=== PATIENT | male | born 1990 | race Caucasian/White ===

== ENCOUNTER 2023-09-28 22:02 | Observation (INO) | payer MEDICARE, MEDICAID, SELFPAY ==
[2023-09-28 17:58] VITALS: BMI 38.8
[2023-09-28 18:02] VITALS: BP 138/87
[2023-09-28 18:19] LABS: % Basophils 0.4 % (0-2); % Eosinophils 0.4 % (0-6); % Immature Granulocytes 0.7 % (0-0.5); % Lymphocytes 5.3 % (20.5-51.1); % Monocytes 2.7 % (1.7-9.3); % Neutrophils 90.5 % (42.2-75.2); Absolute Basophils 0.1 10^3/uL (0-0.2); Absolute Eosinophils 0.1 10^3/uL (0-0.7); Absolute Immature Granulocytes 0.2 10^3/uL (0-0.05); Absolute Lymphocytes 1.2 10^3/uL (1.2-3.4); Absolute Monocytes 0.6 10^3/uL (0.1-0.6); Absolute Neutrophils 19.8 10^3/uL (1.4-6.5); Hematocrit 47.6 % (39.0-52.0); Hemoglobin 16.5 g/dL (13.0-18.0); Mean Corp Hgb Conc. 34.7 g/dL (33.0-37.0); Mean Corpuscular Hgb 31.4 pg (27.0-31.0); Mean Corpuscular Volume 90.5 fL (80.0-94.0); Mean Platelet Volume 8.9 fL (7.4-10.4); Nucleated Red Blood Cells % 0 % (-); Platelet Count 345 10^3/uL (130-400); Red Blood Cell Count 5.26 10^6/uL (4.70-6.10); White Blood Cell Count 21.9 10^3/uL (4.8-10.8)
[2023-09-28] MEDS: DILAUDID 0.5 MG IV ×2 (18:25→22:14)
[2023-09-28] MEDS: NSS 1000 IV ×2 (18:27→23:10)
[2023-09-28 18:36] LABS: ALT (SGPT) 37 U/L (0-50); AST (SGOT) 35 U/L (17-59); Albumin 4.4 g/dl (3.5-5.0); Alkaline Phosphatase 95 U/L (38-126); Blood Urea Nitrogen 22 mg/dl (9-20); Calcium 9.5 mg/dl (8.4-10.2); Carbon Dioxide 24 mmol/L (22-30); Chloride 104 mmol/L (98-107); Glucose 120 mg/dl (70-99); Lipase 597 U/L (23-300); Potassium 4.3 mmol/L (3.5-5.1); Sodium 137 mmol/L (135-145); Total Bilirubin 0.7 mg/dl (0.2-1.3); Total Protein 8.1 g/dl (6.3-8.2); eGFR > 60.00
--- NOTE | 2023-09-28 19:32 | ED.GENMED ---
History of Present Illness
<Cassidy Pascal NP - Last Filed: 09/28/23 23:44>
General
Chief Complaint: Abdominal Pain
Source: patient and family (Mother)
Exam Limitations: none
Time Seen by Provider: 09/28/23 18:09
Nursing documentation reviewed up to this point in time: agreed with
Travel History
Have you had any contact with someone who has COVID-19?: No
Do you have any symptoms of coronavirus? Fever > 100 degrees, chills, cough, shortness of breath, sore throat, loss of taste or smell, muscle aches, or headache?: No
History of Present Illness
History of Present Illness:
Patient to ED with complaint of abdominal pain,vomiting. Mother states he came home from work and symptoms started. Patient crying on arrival. NO fever/chills, recent illness. No diarrhea
Past History
<Cassidy Pascal NP - Last Filed: 09/28/23 23:44>
Past History
ED Past Medical History: Hypothyroidism and Other (Downs)
ED Past Surgical History: None
Social History
Tobacco: Non-smoker
Alcohol: None
Drug: None
Personal: Single
Living: with family
Review of Systems
<Cassidy Pascal NP - Last Filed: 09/28/23 23:44>
Review of Systems
Allergies reviewed?: Yes
All Other Systems: ROS reviewed and negative except as documented in HPI and ROS
Constitutional: Reports no symptoms
EENT: Reports no symptoms
Respiratory: Reports no symptoms
Cardiac: Reports no symptoms
ABD/GI: Reports abdominal pain (RLQ) and vomiting
: Reports no symptoms
Musculoskeletal: Reports no symptoms
Skin: Reports no symptoms
Neurological: Reports no symptoms
Psychiatric: Reports no symptoms
Phy Exam
<Cassidy Pascal NP - Last Filed: 09/28/23 23:44>
General Physical Exam
General Presentation: moderate distress
General age: appears stated age
General Skin: warm and dry
General Habitus: normal
Cardiovascular Exam
Cardiovascular Exam: regular rate/rhythm and no edema
Pulmonary Exam
Pulmonary Exam: lungs clear and no respiratory distress
Gastrointestinal Exam
Gastrointestinal Exam: soft, no organomegaly, no pulsatile mass, non distended and no cva tenderness
Palpation: right upper quadrant: Moderate tenderness and right lower quadrant: Severe tenderness
Musculoskeletal Exam
Musculoskeletal Exam: full ROM and neuro vasc intact
Skin Exam
Skin Exam: normal color, warm/dry and no rash
Psychiatric Exam
Psychiatric Exam: normal mood/affect
Course
<Cassidy Pascal PROGRAM DIRECTOR/TRAFFIC DIRECTOR - Last Filed: 09/28/23 23:44>
Orders/Labs/Results
Orders:
Orders
09/28/23 18:06
Ondansetron Injectable [Zofran] 4 mg .ROUTE .STK-MED ONE
09/28/23 18:14
Complete Blood Count/With Diff Urgent
Comprehensive Metabolic Panel Urgent
Lipase Urgent
09/28/23 18:16
HYDROmorphone [Dilaudid] 0.5 mg IV NOW STA
09/28/23 18:17
CT Abd/pelvis W Iv Cont Urgent
Comment:
Reason For Exam: RLQ abdominal pain, vomiting
09/28/23 18:24
0.9% Sodium Chloride 1000 ml [Nss] 1,000 ml IV BOLUS
09/28/23 19:32
Ondansetron Injectable [Zofran] 4 mg .ROUTE .STK-MED ONE
09/28/23 19:34
Ondansetron Injectable [Zofran] 4 mg IV NOW STA
09/28/23 20:51
Prochlorperazine [Compazine] 10 mg .ROUTE .STK-MED ONE
09/28/23 20:52
Prochlorperazine [Compazine] 10 mg IV NOW STA
09/28/23 20:55
CXR2 [CR Chest - 2 Views ] Urgent
Comment:
Reason For Exam: Cough
09/28/23 21:21
Lactic Acid Urgent
09/28/23 21:33
Admit/Transfer Patient As Directed
Co-Sign Provider:
Level of Care: Observation services
Assign to:: Medical/Surgical
Physician / Group: Raghu
Diagnosis: Enteritis
09/28/23 21:34
Code Status As Directed
Resuscitation Status: Full Code
09/28/23 22:09
HYDROmorphone [Dilaudid] 0.5 mg IV Q4HPRN PRN
09/28/23 23:30
Urinalysis Reflex To Culture Urgent
Date Specimen was Collected: 09/28/23
Time Specimen was Collected: 18:23
Abnormal Lab Results
09/28/23 09/28/23
18:14 21:21
WBC 21.9 H 10^3/uL
(4.8-10.8)
MCH 31.4 H pg
(27.0-31.0)
RDW 15.0 H %
(11.5-14.5)
Abs Immat Gran (auto) 0.2 H 10^3/uL
(0-0.05)
Absolute Neuts (auto) 19.8 H 10^3/uL
(1.4-6.5)
Immature Gran % 0.7 H %
(0-0.5)
Neutrophils % 90.5 H %
(42.2-75.2)
Lymphocytes % 5.3 L %
(20.5-51.1)
BUN 22 H mg/dl
(9-20)
Creatinine 1.4 H mg/dL
(0.7-1.3)
Glucose 120 H mg/dl
(70-99)
Lactic Acid 2.1 H mmol/L
(0.7-2.0)
Lipase 597 H U/L
(23-300)
09/28/23 18:14
09/28/23 18:14
Vital Signs
Initial and Last Documented VS:
Initial Vital Signs
Temp Pulse Resp BP Pulse Ox
98.0 F 119 26 138/87 98
09/28/23 18:02 09/28/23 18:02 09/28/23 18:02 09/28/23 18:02 09/28/23 18:02
Last Documented Vital Signs
Temp Pulse Resp BP Pulse Ox
100.3 F 115 29 128/63 92
09/28/23 23:26 09/28/23 23:21 09/28/23 23:21 09/28/23 23:21 09/28/23 23:21
<Radha Goodson MD - Last Filed: 09/28/23 19:58>
Orders/Labs/Results
Orders:
Orders
09/28/23 18:06
Ondansetron Injectable [Zofran] 4 mg .ROUTE .STK-MED ONE
09/28/23 18:14
Complete Blood Count/With Diff Urgent
Comprehensive Metabolic Panel Urgent
Lipase Urgent
09/28/23 18:16
HYDROmorphone [Dilaudid] 0.5 mg IV NOW STA
09/28/23 18:17
CT Abd/pelvis W Iv Cont Urgent
Comment:
Reason For Exam: RLQ abdominal pain, vomiting
09/28/23 18:24
0.9% Sodium Chloride 1000 ml [Nss] 1,000 ml IV BOLUS
09/28/23 19:32
Ondansetron Injectable [Zofran] 4 mg .ROUTE .STK-MED ONE
09/28/23 19:34
Ondansetron Injectable [Zofran] 4 mg IV NOW STA
09/28/23 20:51
Prochlorperazine [Compazine] 10 mg .ROUTE .STK-MED ONE
09/28/23 20:52
Prochlorperazine [Compazine] 10 mg IV NOW STA
09/28/23 20:55
CXR2 [CR Chest - 2 Views ] Urgent
Comment:
Reason For Exam: Cough
09/28/23 21:21
Lactic Acid Urgent
09/28/23 21:33
Admit/Transfer Patient As Directed
Co-Sign Provider:
Level of Care: Observation services
Assign to:: Medical/Surgical
Physician / Group: Raghu
Diagnosis: Enteritis
09/28/23 21:34
Code Status As Directed
Resuscitation Status: Full Code
09/28/23 22:09
HYDROmorphone [Dilaudid] 0.5 mg IV Q4HPRN PRN
09/28/23 23:30
Urinalysis Reflex To Culture Urgent
Date Specimen was Collected: 09/28/23
Time Specimen was Collected: 18:23
Abnormal Lab Results
09/28/23 09/28/23
18:14 21:21
WBC 21.9 H 10^3/uL
(4.8-10.8)
MCH 31.4 H pg
(27.0-31.0)
RDW 15.0 H %
(11.5-14.5)
Abs Immat Gran (auto) 0.2 H 10^3/uL
(0-0.05)
Absolute Neuts (auto) 19.8 H 10^3/uL
(1.4-6.5)
Immature Gran % 0.7 H %
(0-0.5)
Neutrophils % 90.5 H %
(42.2-75.2)
Lymphocytes % 5.3 L %
(20.5-51.1)
BUN 22 H mg/dl
(9-20)
Creatinine 1.4 H mg/dL
(0.7-1.3)
Glucose 120 H mg/dl
(70-99)
Lactic Acid 2.1 H mmol/L
(0.7-2.0)
Lipase 597 H U/L
(23-300)
09/28/23 18:14
09/28/23 18:14
Vital Signs
Initial and Last Documented VS:
Initial Vital Signs
Temp Pulse Resp BP Pulse Ox
98.0 F 119 26 138/87 98
09/28/23 18:02 09/28/23 18:02 09/28/23 18:02 09/28/23 18:02 09/28/23 18:02
Last Documented Vital Signs
Temp Pulse Resp BP Pulse Ox
100.3 F 115 29 128/63 92
09/28/23 23:26 09/28/23 23:21 09/28/23 23:21 09/28/23 23:21 09/28/23 23:21
<Cassidy Pascal NP - Last Filed: 09/28/23 23:44>
*Critical Care Note
Total Time (30-74mins, 75-104mins- exclusive of procedures): Not Applicable
<Cassidy Pascal NP - Last Filed: 09/28/23 23:44>
Update Note
Update Note:
Patient to ED with abdominal pain and vomiting. Symptoms started this afternoon. CT result: enteritis inflammatory vs infectious. WBC elevated at 21. Afebrile in dept. He is unable to tolerate po fluids dispite pain meds and antiemetics. Still
no diarrhea. Will continue IV hydration, admit to hospitalist. Will hold off on antibiotics at this time. Case discussed with Dr.. Goodson who also evaluated this patient Agrees with findings and plan.
ED Attending Note
<Cassidy Pascal NP - Last Filed: 09/28/23 23:44>
-
Portions of this chart may have been created with voice recognition software.� Occasional wrong word or��sound alike� substitutions may have occurred due to the inherent limitations of voice recognition software.
<Radha Goodson MD - Last Filed: 09/28/23 19:58>
ED Attending Note
Patient seen and examined by attending physician: Yes
I performed the substantive portion of visit, reviewed & personally made and approve the management plan that is documented in note by myself or BOO.: Yes
ED Attending Note:
33-year-old male who presents to the ER with complaints of abdominal discomfort, nausea, repeated nonbloody vomiting. No fever or diarrhea noted. Pain is somewhat diffuse. On exam, abdomen soft, diffusely tender, no rebound or guarding. Patient
began actively vomiting, nonbloody. Labs CT noted, significant leukocytosis, no acute surgical findings on CT, appendix noted to be normal. Leukocytosis may be consistent with patient's pain, and known enteritis however given continued pain,
continued vomiting, etc. will bring into the hospital for hydration, antiemetics, pain control, continued exams and observation. Family updated.
Discharge Plan
Departure
Patient Disposition: Admit
Date of Disposition: 09/28/23
Time of Disposition: 19:34
Presentation/result/management discussed w/ accepting MD/DO: Hospitalist
Condition: Fair
Covid-19: Not Applicable
Discharge Problem:
Enteritis
Interventions
Interventions:
*Risk Screen - Suicide Last Done: 09/28/23 18:00
*General Assessment Last Done: 09/28/23 18:00
*Neglect/Abuse Screening Last Done: 09/28/23 18:00
ED- Fall Risk Assessment Last Done: 09/28/23 18:43
OT-Byjinj-Xlufjqcxbr Assessment Last Done: 09/28/23 23:27
[2023-09-28] MEDS: ZOFRAN 4 MG IV (19:36)
--- NOTE | 2023-09-28 20:52 | HPS.HSE ---
Family Physician
-
Family Physician: Micaela Robb
Chief Complaint
-
Abd Pain, N/V
History of Present Illness
Patient is a 33y M with PMH significant for Down's syndrome, gout and hypothyroidism who presents to ED complaining of abdominal pain and N/V. Patient states that he was feeling well until about 4 PM today when he developed sudden onset of
sharp, stabbing mid-abdominal pain. He has since had multiple episodes of non-bloody, bilious emesis - including ongoing emesis here in the ED.
Patient denies any recent illness including diarrhea, etc. No known sick contacts.
No fevers / chills. No chest pain.
Patient does complain of cough - which brother states is a chronic issue.
Medical History
Past Medical History
Past Medical History: Reports Other
Additional Past Medical History:
Down's Syndrome
Hypothyroidism
Gout
History of Severe Pneumonia / Empyema (x 2)
Obesity
Past Surgical History: Reports Other
Additional Past Surgical History:
Chest Tube
Social History
Tobacco: Non-smoker
Alcohol: Occasional
Drug: None
Family History
Family History: Not pertinent
Allergies / Home Medications
Allergies reflects when Allergies were last updated in [facility].
Home Medications with original date entered in [facility]
Allergy/Medication List:
Allergies
Allergy/AdvReac Type Severity Reaction Status Date / Time
NKA - No Known Allergies Allergy Unknown Uncoded 02/22/21 16:11
Home Medications
allopurinol 300 mg tablet 300 mg PO DAILY 09/28/23
levothyroxine 125 mcg tablet 125 mcg PO DAILY 09/28/23
Review of Systems
-
History Source: Patient and Family
A 12 point ROS was completed and negative except as noted: Yes
Constitutional: Reports Fatigue; Denies Fever or Chills
EENT: Denies Sore Throat
Respiratory: Reports Cough; Denies Hemoptysis or Trouble Breathing
Cardiac: Denies Chest Pain, Diaphoresis or Palpitations
Abdomen/GI: Reports Abdominal Pain, Nausea and Vomiting; Denies Diarrhea, Constipated, Bloody Stools or Black Stools
: Denies Dysuria, Frequency or Flank Pain
Neurological: Denies Dizzy or Headache
Psych: Denies Depression or Anxiety
Physical Exam
Vital Signs
Vital Signs
Temp Pulse Resp BP Pulse Ox
98.0 F 119 26 138/87 98
09/28/23 18:02 09/28/23 18:02 09/28/23 18:02 09/28/23 18:02 09/28/23 18:02
Physical Exam
General: Other (33y M in moderare distress due to abdominal pain and nausea.)
HEENT: Other (Thick neck, Down's facies)
Respiratory: Clear; No Wheezes, Rales or Rhonchi
Cardiac: S1/S2 and Regular Rhythm; No Murmur
GI: Other (Obese, diffusely tender - mostly in mid abdomen. Voluntary guarding. Decreased bowel sounds.)
Musculoskeletal: No Clubbing, No Cyanosis and No Edema
Neuro: AO x 3
Laboratory Results
-
09/28/23 18:14
09/28/23 18:14
Laboratory Results
Total Bilirubin 0.7 mg/dl (0.2-1.3) 09/28/23 18:14
AST 35 U/L (17-59) 09/28/23 18:14
ALT 37 U/L (0-50) 09/28/23 18:14
Alkaline Phosphatase 95 U/L (38-126) 09/28/23 18:14
Lipase 597 U/L (23-300) H 09/28/23 18:14
Impression/Plan
-
A/P: Patient is a 33y M with PMH significant for history of severe pneumonia, hypothyroidism and Down's syndrome who presents to ED complaining of abdominal pain with N/V.
Acute Enteritis
- Observe overnight for further evaluation and treatment.
- CT scan in the ED shows mild enteritis but no other acute findings.
- NPO for now.
- IVF support, pain control, antiemetics, etc.
- Follow for clinical improvement.
- Observe off of abx for now - follow fever curve, etc.
- Check lactate level.
Leukocytosis
- WBC = 20 with L shift. Also with significant increase in Hgb from prior baseline.
- Likely due to acute inflammation + volume depletion.
- IVF support as noted above.
- Follow for any fever, new symptoms, etc.
- Follow for improvement in cell counts.
Hypothyroidism
- Stable. Continue T4 supplementation.
History of Gout
- Stable. No current joint swelling / symptoms.
- Continue allopurinol.
- IVF support as noted above to avoid / improve hypovolemia.
DVT Prophylaxis: SCDs
Code Status: Full
[2023-09-28] MEDS: COMPAZINE 10 MG IV (20:53)
[2023-09-28 21:38] LABS: Lactic Acid 2.1 mmol/L (0.7-2.0)
[2023-09-28 22:46] VITALS: BMI 38.8
[2023-09-28 23:21] VITALS: BP 128/63
[2023-09-29] VITALS (18 sets, daily range): BP systolic 100–139; BP diastolic 45–96; BMI 37.4
[2023-09-29] MEDS: NSS 1000 IV ×2 (01:30→06:58)
[2023-09-29] MEDS: DILAUDID 0.5 MG IV ×2 (02:06→06:55)
[2023-09-29 06:20] LABS: Hematocrit 41.7 % (39.0-52.0); Hemoglobin 14.1 g/dL (13.0-18.0); Mean Corp Hgb Conc. 33.8 g/dL (33.0-37.0); Mean Corpuscular Hgb 31.5 pg (27.0-31.0); Mean Corpuscular Volume 93.1 fL (80.0-94.0); Mean Platelet Volume 9.3 fL (7.4-10.4); Platelet Count 285 10^3/uL (130-400); Red Blood Cell Count 4.48 10^6/uL (4.70-6.10); Red Cell Dist. Width 15.2 % (11.5-14.5); White Blood Cell Count 19.1 10^3/uL (4.8-10.8)
[2023-09-29 06:49] LABS: Blood Urea Nitrogen 23 mg/dl (9-20); Carbon Dioxide 23 mmol/L (22-30); Chloride 106 mmol/L (98-107); Estimated Creatinine Clearance 79 ml/min; Glucose 106 mg/dl (70-99); Magnesium 1.7 mg/dl (1.6-2.3); Phosphorus 5.5 mg/dl (2.5-4.5); Potassium 4.8 mmol/L (3.5-5.1); Sodium 138 mmol/L (135-145); eGFR > 60.00
[2023-09-29] MEDS: SYNTHROID 125 MCG PO (07:59)
[2023-09-29] MEDS: PROTONIX IV 40 MG IV (09:33)
[2023-09-29] MEDS: ZYLOPRIM 300 MG PO (09:33)
[2023-09-29] MEDS: NSS (PRESERVATIVE FREE) 10 ML IV (09:33)
[2023-09-29 09:51] LABS: Urine Albumin Negative (Neg - Trace); Urine Bilirubin Negative (Negative); Urine Character Clear (Clear); Urine Color Yellow; Urine Glucose Negative (Negative); Urine Ketone Negative (Negative); Urine Leukocyte Negative (Negative); Urine Nitrite Negative (Negative); Urine Occult Blood Negative (Negative); Urine Urobilinogen Negative (Neg - 1+)
[2023-09-29 10:58] LABS: Lactic Acid 0.9 mmol/L (0.7-2.0)
--- NOTE | 2023-09-29 11:00 | W.PN.HOSP.TC ---
Today's Communication/Plan
-
clears
change IVF to LR
Monitor for diet tolerance
Assessment / Plan
Assessment / Plan
A/P: Patient is a 33y M with PMH significant for history of severe pneumonia, hypothyroidism and Down's syndrome who presents to ED complaining of abdominal pain with N/V.
Sepsis likely 2/2 enteritis (likely viral) -poa
- CT scan in the ED shows mild enteritis but no other acute findings.
- clears and ADAT.
- IVF support, pain control, antiemetics, etc.
- Follow for clinical improvement.
- Observe off of abx for now - follow fever curve, etc.
- If with diarrhea then check stool studies.
Leukocytosis
- Likely due to acute inflammation + volume depletion.
- IVF support as noted above.
- Follow for any fever, new symptoms, etc.
- Follow for improvement in cell counts.
Lactic acidosis
-resolved with IVF.
Hypothyroidism
- Stable. Continue T4 supplementation.
History of Gout
- Stable. No current joint swelling / symptoms.
- Continue allopurinol.
- IVF support as noted above to avoid / improve hypovolemia.
CKD unknown stage
-trend cr
Acute hypoxic resp insufficiency
-IS ordered
-nasal congestion
-likely atelectasis
DVT Prophylaxis: SCDs
Code Status: Full
d/w with mother at bedside in details.
Anticipated Discharge: > 48 hours
Subjective/Interval History
-
Date of Service: September 29, 2023
History obtained from mom at bedside and intermittently pt answering question as pt with down syndrome
improvement in abd pain.
no nausea or vomiting
no diarrhea
denies chest pain or sob
thirsty and wants to drink
Objective Data
-
Labs:
Laboratory Results
09/29/23
05:14
WBC 19.1 H
Hgb 14.1
Hct 41.7
Plt Count 285
Sodium 138
Potassium 4.8
Chloride 106
Carbon Dioxide 23
BUN 23 H
Creatinine 1.4 H
Glucose 106 H
Calcium 8.0 L D
Vital Signs:
Vital Signs
Temp Pulse Resp BP Pulse Ox
100.3 F 89 14 100/54 94
09/28/23 23:26 09/29/23 10:30 09/29/23 10:30 09/29/23 10:00 09/29/23 10:30
I&O
09/28/23 09/29/23 09/30/23
06:59 06:59 06:59
Intake Total 1800 / 1800
Balance 1800 / 1800
Physical Exam
-
General: Well Developed and No Apparent Distress
HEENT: Normocephalic, Atraumatic and Moist Mucous Membranes
Respiratory: Clear to Auscultation
Cardiac: Regular Rhythm and S1/S2; Negative Murmur, Rub or Gallop
GI: Soft, Nondistended, Normal Bowel Sounds, Tender and Other (no guarding or rigidity ); Negative Organomegaly
Rectal: Deferred by Provider
Musculoskeletal: No Clubbing, No Cyanosis and No Edema
Skin: Negative Rash
Neuro: Awake and Nonfocal/Grossly Intact
Psych: Calm
Data Reviewed
-
Total Time Spent with Patient (in minutes): 56
--- NOTE | 2023-09-29 11:08 | CON.GS ---
Addendum entered and electronically signed by Víctor Calabrese MD 09/29/23 14:29:
Patient seen and examined.
Patient is a 33 yo M with a PMH of gout, hypothyroidism, and Down syndrome who presents with 24 hours of nausea, vomiting, abdominal pain. Mother is present for encounter. Patient and mother states that he was doing well prior to acute onset of
symptoms yesterday. He reports having wings which did not taste right on Thursday. He then had leftovers of the swings within hours of the onset of his symptoms. Severe profuse nausea and vomiting. No hematemesis. No bloody bowel movements. No
fevers prior to presentation. He has some abdominal discomfort in his mid abdomen. Augustine states that his symptoms have mildly improved.
Gen: NAD
Abd: soft, tender in mid epigastrium, ND, non-peritoneal (no rebound or guarding)
Labs and imaging reviewed.
Patient is a 33 yo M p/w infectious enteritis
No clinical or radiographic concern for bowel ischemia. Exam without peritonitis. CT scan imaging without significant bowel wall thickening, pneumatosis, or free air. WBC and elevated lactate are likely related to dehydration. Degree of
dehydration notable for elevated Hb and SADAF. No plans or indication for surgical intervention at this time. Okay for clears for comfort. Trend labs and continue IV fluid resuscitation. All questions answered.
-- No plans for surgery at this time
-- OK for clears
-- IVF
-- Trend labs
-- Zosyn for translocation
-- Stool studies
Original Note:
Consultation
-
Date/Time Consultation Requested: 09/29/2023
Date/Time Consultation Performed: 09/29/2023
Performing Provider: Dr. Víctor Calabrese
Medical History
-
Chief Complaint: Abdominal pain, nausea, vomiting
History of Present Illness:
33 yo, male with past medical history significant for hypothyroidism, gout, Down's presented with nausea/vomiting and abdominal pain since 1 day. Patient states that abdominal pain is acute in onset, diffuse, intermittent, nonradiating, associated
with multiple episodes of nonbloody vomiting. No history of fevers, chills, diarrhea. Patient attributes the current symptoms to the food he ate outside during [employer] game.
Past Medical History
Past Medical History: Hypothyroidism and Other ( Down' s syndrome, gout)
Past Surgical History: None
Social History
Tobacco: Non-Smoker
Alcohol: None
Drug: None
Personal: Single
Employment: Employed
Allergies / Home Medications
Allergy/AdvReac Type Severity Reaction Status Date / Time
No Known Allergies Allergy Unverified 09/28/23 22:11
�Medication �Instructions �Recorded �Confirmed �Type
allopurinol 300 mg tablet 300 mg PO DAILY 09/28/23 09/28/23 History
levothyroxine 125 mcg tablet 125 mcg PO DAILY 09/28/23 09/28/23 History
Review of Systems
-
All other systems: Negative unless noted (As per HPI)
A 10 point review of systems was completed, and was negative except as per HPI.
Physical Exam
Vital Signs
Temp Pulse Resp BP Pulse Ox
100.3 F 89 14 100/54 94
09/28/23 23:26 09/29/23 10:30 09/29/23 10:30 09/29/23 10:00 09/29/23 10:30
09/28/23 09/29/23 09/30/23
06:59 06:59 06:59
Actual Weight 99.3 kg
Body Mass Index (BMI) 38.8
Lab Results
09/29/23 05:14
09/29/23 05:14
WBC 19.1 10^3/uL (4.8-10.8) H 09/29/23 05:14
Hgb 14.1 g/dL (13.0-18.0) 09/29/23 05:14
Hct 41.7 % (39.0-52.0) 09/29/23 05:14
Plt Count 285 10^3/uL (130-400) 09/29/23 05:14
Abs Immat Gran (auto) 0.2 10^3/uL (0-0.05) H 09/28/23 18:14
Neutrophils % 90.5 % (42.2-75.2) H 09/28/23 18:14
Physical Exam
General: Well Developed and Well Nourished
HEENT: Normocephalic, Anicteric and Other (webbed neck)
Respiratory: Clear
Cardiac: S1/S2 and Regular Rhythm
GI: Soft, Normal Bowel Sounds and Tender (Diffusely, no guarding/rigidity)
Musculoskeletal: No Edema
Skin: Warm and Dry
Neuro: Awake and Alert
Data Reviewed
-
CT Scan: Image Personally Visualized and interpreted
Assessment / Plan
-
33 yo, male with PMH of hypothyroidism, gout, Down syndrome noted with abdominal pain, nausea and vomiting.
# Acute gastroenteritis
-Infectious vs inflammatory vs ischemic etiology
-Likely infectious
CT abdomen�09/28/2023� Mild wall thickening of multiple proximal loops of jejunal small bowel in the central abdomen most suspicious for a mild enteritis.
� NPO
- IV fluids
-Pain control
� Antiemetics
- Start Zosyn
� Leukocytosis trending down, WBC at 19.1 today
�Monitor fever curve, WBC count
-Follow for clinical improvement
DVT prophylaxis: SCDs
[2023-09-29] MEDS: TYLENOL 650 MG PO ×2 (11:27→17:55)
[2023-09-29] MEDS: LR 1000 IV (12:42)
[2023-09-29] MEDS: UNASYN IV ×2 (16:10→21:42)
[2023-09-29] MEDS: LOVENOX 40 MG SC (18:05)
--- NOTE | 2023-09-29 18:19 | PTCARENOTE ---
Pt. admitted from ED. IVF running. Mom at bedside staying with patient. Patient and mom oriented to unit. Pt. ordered clear liquid diet tray for dinner. VSS.
[2023-09-29] MEDS: PERCOCET 5/325 1 TABLET PO (21:42)
[2023-09-30] MEDS: TYLENOL 650 MG PO ×2 (00:57→06:13)
[2023-09-30] MEDS: LR 1000 IV ×2 (01:03→09:24)
[2023-09-30] MEDS: UNASYN IV ×2 (03:47→09:25)
[2023-09-30] MEDS: SYNTHROID 125 MCG PO (06:09)
[2023-09-30 07:14] LABS: % Basophils 0.8 % (0-2); % Eosinophils 1.9 % (0-6); % Immature Granulocytes 0.4 % (0-0.5); % Lymphocytes 19.8 % (20.5-51.1); % Monocytes 11.9 % (1.7-9.3); % Neutrophils 65.2 % (42.2-75.2); Absolute Eosinophils 0.1 10^3/uL (0-0.7); Absolute Lymphocytes 1.1 10^3/uL (1.2-3.4); Absolute Monocytes 0.6 10^3/uL (0.1-0.6); Absolute Neutrophils 3.5 10^3/uL (1.4-6.5); Hematocrit 42.8 % (39.0-52.0); Mean Corp Hgb Conc. 32.7 g/dL (33.0-37.0); Mean Corpuscular Hgb 31.3 pg (27.0-31.0); Mean Corpuscular Volume 95.7 fL (80.0-94.0); Mean Platelet Volume 9.3 fL (7.4-10.4); Nucleated Red Blood Cells % 0 % (-); Platelet Count 209 10^3/uL (130-400); Red Blood Cell Count 4.47 10^6/uL (4.70-6.10); Red Cell Dist. Width 15.3 % (11.5-14.5); White Blood Cell Count 5.3 10^3/uL (4.8-10.8)
[2023-09-30 07:30] VITALS: BP 114/68
[2023-09-30 07:37] LABS: ALT (SGPT) 27 U/L (0-50); AST (SGOT) 30 U/L (17-59); Albumin 3.1 g/dl (3.5-5.0); Alkaline Phosphatase 61 U/L (38-126); Blood Urea Nitrogen 15 mg/dl (9-20); Calcium 8.4 mg/dl (8.4-10.2); Carbon Dioxide 31 mmol/L (22-30); Chloride 106 mmol/L (98-107); Estimated Creatinine Clearance 94 ml/min; Glucose 91 mg/dl (70-99); Potassium 4.4 mmol/L (3.5-5.1); Sodium 137 mmol/L (135-145); Total Bilirubin 0.6 mg/dl (0.2-1.3); eGFR > 60.00
--- NOTE | 2023-09-30 08:48 | W.PN.GS2 ---
Addendum entered and electronically signed by Terrence Vieira MD 09/30/23 13:53:
Ok for a short course of abx x4days
Original Note:
Today's Communication / Plan
-
Advance diet
Assessment / Plan
-
This is a 33-year-old male with a history of Down syndrome, no prior abdominal surgical history who presents with 24 hours of nausea vomiting and abdominal pain. No sick contacts. CT scan concerning for slightly thickened/enhancing bowel but no
obstructive pattern, pneumatosis, portal venous gas or free air. His leukocytosis, lacticemia and SADAF have all resolved with hydration. Though he is not having diarrhea, I suspect this is gastroenteritis
Can advance to a regular diet as tolerated.
Antibiotics per primary.
Continue to trend labs.
Stool studies as able
General surgery will follow peripherally, please call with any questions or concerns.
Time Spent
Total Time Spent with Patient (in minutes): 15
Subjective Data
-
Date of Service: September 30, 2023
Interval Events:
No acute events overnight. Slept okay. Pain Controlled. Denies Nausea/Vomiting, -bowel function. Tolerating diet.
Objective Data
-
Intake and Output
09/29/23 09/30/23 10/01/23
06:59 06:59 06:59
Intake Total 1800 / 1800 1920 / 1920
Output Total 2500 / 2500
Balance 1800 / 1800 -580 / -580
Intake:
Oral fluids 480 / 480
IV fluids (Total) 1800 / 1800 1200 / 1200
Nss 1,000 ml @ 150 mls/hr IV . 1800 / 1800
Q6H40M MAGDALENO Rx#:[id number]
IV piggybacks 240 / 240
Output:
Urine, Voided 2500 / 2500
Other:
Number of unmeasured voidings 2
Vital Signs
Temp Pulse Resp BP Pulse Ox
97.6 F 68 18 114/68 96
09/30/23 07:30 09/30/23 07:30 09/30/23 07:30 09/30/23 07:30 09/30/23 07:30
Lab Results
09/30/23 06:55
09/30/23 06:55
Calcium 8.4 mg/dl (8.4-10.2) 09/30/23 06:55
Phosphorus 5.5 mg/dl (2.5-4.5) H 09/29/23 05:14
Magnesium 1.7 mg/dl (1.6-2.3) 09/29/23 05:14
Total Bilirubin 0.6 mg/dl (0.2-1.3) 09/30/23 06:55
AST 30 U/L (17-59) 09/30/23 06:55
ALT 27 U/L (0-50) 09/30/23 06:55
Alkaline Phosphatase 61 U/L (38-126) 09/30/23 06:55
Total Protein 6.0 g/dl (6.3-8.2) L D 09/30/23 06:55
Albumin 3.1 g/dl (3.5-5.0) L 09/30/23 06:55
Physical Exam
-
GENERAL/NEURO: Sleepy, somewhat difficult to arouse, no distress
CHEST: Unlabored breathing on 4 L nasal cannula
ABDOMEN: Soft, obese, nontender, nondistended
[2023-09-30] MEDS: ZYLOPRIM 300 MG PO (09:24)
[2023-09-30] MEDS: NSS (PRESERVATIVE FREE) 10 ML IV (09:25)
[2023-09-30] MEDS: PROTONIX IV 40 MG IV (09:25)
--- NOTE | 2023-09-30 11:31 | W.PN.HOSP.TC ---
Today's Communication/Plan
-
Wean o2 as tolerated
monitor for diet tolerance
Assessment / Plan
Assessment / Plan
A/P: Patient is a 33y M with PMH significant for history of severe pneumonia, hypothyroidism and Down's syndrome who presents to ED complaining of abdominal pain with N/V.
Sepsis likely 2/2 enteritis likely viral versus bacterial-POA
- CT scan in the ED shows mild enteritis but no other acute findings.
- Data transfer) monitor tolerance. If tolerating diet DC fluid later today
- IVF support, pain control, antiemetics, etc.
- Follow for clinical improvement.
- Started on antibiotics per surgery. Can complete a short course
- If with diarrhea then check stool studies.
Leukocytosis
- Likely due to acute inflammation + volume depletion.
- IVF support as noted above.
- Follow for any fever, new symptoms, etc.
- Follow for improvement in cell counts.
Lactic acidosis
-resolved with IVF.
Hypothyroidism
- Stable. Continue T4 supplementation.
History of Gout
- Stable. No current joint swelling / symptoms.
- Continue allopurinol.
- IVF support as noted above to avoid / improve hypovolemia.
CKD unknown stage
-trend cr
Acute hypoxic resp insufficiency likely second atelectasis
-IS ordered
-nasal congestion
-Wean oxygen. If no improvement check repeat imaging
DVT Prophylaxis: SCDs
Code Status: Full
d/w with mother at bedside in details on daily basis
Anticipated Discharge: Within 24 hours
Subjective/Interval History
-
Date of Service: September 30, 2023
Remains on oxygen
States improvement in abdominal discomfort from yesterday
No nausea vomiting or diarrhea
Additional history obtained with mother at bedside
Objective Data
-
Labs:
Laboratory Results
09/30/23
06:55
WBC 5.3
Hgb 14.0
Hct 42.8
Plt Count 209 D
Sodium 137
Potassium 4.4
Chloride 106
Carbon Dioxide 31 H
BUN 15
Creatinine 1.2
Glucose 91
Calcium 8.4
Total Bilirubin 0.6
AST 30
ALT 27
Alkaline Phosphatase 61
Vital Signs:
Vital Signs
Temp Pulse Resp BP Pulse Ox
97.6 F 68 18 114/68 97
09/30/23 07:30 09/30/23 07:30 09/30/23 07:30 09/30/23 07:30 09/30/23 11:10
I&O
09/29/23 09/30/23 10/01/23
06:59 06:59 06:59
Intake Total 1800 / 1800 1919 / 1919
Output Total 2500 / 2500
Balance 1800 / 1800 -580 / -580
Physical Exam
-
General: Well Developed and No Apparent Distress
HEENT: Normocephalic, Atraumatic, Moist Mucous Membranes and Oxygen
Respiratory: Decreased Breath Sounds
Cardiac: Regular Rhythm and S1/S2; Negative Murmur, Rub or Gallop
GI: Soft, Nondistended, Normal Bowel Sounds, Tender (Mild improved from yesterday epigastric) and Other (no guarding or rigidity ); Negative Organomegaly
Rectal: Deferred by Provider
Musculoskeletal: No Clubbing, No Cyanosis and No Edema
Skin: Negative Rash
Neuro: Awake and Nonfocal/Grossly Intact
Psych: Calm
Data Reviewed
-
Total Time Spent with Patient (in minutes): 56
--- NOTE | 2023-09-30 11:35 | CM ---
Addendum entered by Francisca Valentin RN 09/30/23 15:48:
Patient is being discharged to home today with no additional needs being identified at this time. The patient's mother will provide transportation.
Original Note:
Reviewed the chart notes and spoke with the patient and his mother at the bedside. The patient is admitted under observational status. The JAMISON letter was provided and explained. The patient's mother had no questions with regards to the letter.
The patient resides with his mother in a two story home with three steps to enter. The patient reports no DME/VN/SNF in the patient in the past. The patient confirmed his pharmacy of choice is the [facility]. CM continues to be
available to patient/family and is monitoring medical plan for needs at discharge.
Plan: Discharge to home when medically stable. No needs anticipated.
[2023-09-30] MEDS: OCEAN, SALINE MIST 2 SPRAYS NASAL (11:49)
[2023-09-30 15:29] VITALS: BP 120/71
--- NOTE | 2023-09-30 15:43 | W.DCSUMMARY ---
Discharge Summary
Discharge Data
Date of Admission: 09/28/23
Date of Discharge: 09/30/23
-
Pending Results: No
Hospital Course
33y M with PMH significant for history of severe pneumonia, hypothyroidism and Down's syndrome who presents to ED complaining of abdominal pain with N/V. CT scan in the ED shows mild enteritis but no other acute findings. Patient with
leukocytosis. General surgery was consulted by ER. Patient initially was kept on IV fluids and n.p.o. Diet was advanced to liquid diet. Patient was able to tolerate liquid diet. Patient was started on IV antibiotics per general surgery
recommendation. Patient without any fevers. Patient WBC down trended. Patient with no other symptomology. Patient tolerated liquid diet and thus was advanced to regular diet. Patient also with atelectasis and required oxygenation. Patient was
able to be weaned off to room air. Patient tolerating regular diet. Patient was discharged with p.o. antibiotics. Of note patient answered few questions however mother at bedside on a daily basis who assisted throughout hospitalization.
Discharge Plan
-
Patient Disposition: Home (Routine Discharge)
Discharge Diagnosis/Procedures: Sepsis likely 2/2 enteritis likely viral versus bacterial
Leukocytosis
Acute hypoxic respiratory insuffiency
Condition: Fair
Diet: Low Residue
Activity: With assistance and As tolerated
Driving Restrictions: Not until seen by your Dr
Referrals:
Micaela Robb, DO [Family Provider] - in less than 1 week
Prescriptions:
New
amoxicillin-pot clavulanate 875-125 mg tablet
1 tab PO Q12H Qty: 8 0RF
Continued
levothyroxine 125 mcg tablet
125 mcg PO DAILY
allopurinol 300 mg tablet
300 mg PO DAILY
Discharge Orders:
Discharge Patient (As Directed); Ordered 09/30/23
Ordered By: Teja La
Discharge Date and Time
Print Language: TOGOLESE
--- NOTE | 2023-09-30 17:05 | PTCARENOTE ---
Patient discharged home. This RN removed patient's IV and reviewed discharge instructions with patient and patient's mother; both verbalized understanding. Patient dressed and belongings gathered with assistance of mother, patient taken down to
mother's car via staff escort and wheelchair.
== END 2023-09-30 17:21 | disposition home or self-care (01) ==
LOC: 2 NORTH 22:02
PROVIDERS: Nurse Practitioner; ADMITTING PHYSICIAN Hospitalist; ATTENDING PHYSICIAN Hospitalist; EMERGENCY PHYSICIAN Emergency Medicine; FAMILY PHYSICIAN Family Medicine; OTHER PHYSICIAN Surgery
DX: A41.9 Sepsis, unspecified organism (principal); R10.9 Unspecified abdominal pain; E03.9 Hypothyroidism, unspecified; Q90.9 Down syndrome, unspecified; R11.2 Nausea with vomiting, unspecified; R05.9 Cough, unspecified; K52.9 Noninfective gastroenteritis and colitis, unspecified; M10.9 Gout, unspecified; E66.9 Obesity, unspecified; K40.90 Unilateral inguinal hernia, without obstruction or gangrene, not specified as recurrent; J98.11 Atelectasis; E87.20 Acidosis, unspecified; R09.02 Hypoxemia; R06.89 Other abnormalities of breathing; R09.81 Nasal congestion; N18.9 Chronic kidney disease, unspecified; Z68.37 Body mass index [BMI] 37.0-37.9, adult; Z79.890 Hormone replacement therapy
CPT/HCPCS: 71046; 74177; 80048; 80053; 81003; 83605; 83690; 83735; 84100; 85025; 85027; 96361; 96374; 96375; 99285; G0378; Q9967

== ENCOUNTER 2024-09-11 16:03 | Emergency (ER) | payer MEDICARE, MEDICAID, SELFPAY ==
[2024-09-11 16:08] VITALS: BP 134/87
[2024-09-11 17:57] VITALS: BP 126/79
--- NOTE | 2024-09-11 19:00 | ED.GENMED ---
History of Present Illness
General
Chief Complaint: Cough
Source: patient and family (Mother)
Exam Limitations: none
Time Seen by Provider: 09/11/24 18:28
History of Present Illness
History of Present Illness:
Patient was in the pool and had an episode of coughing up blood. Fair amount of blood per the mom. Occurred once around 3:30 PM. No further episodes. Did eat spinach earlier and had left this stems on and had somewhat of a foreign body sensation
in his posterior pharynx. No shortness of breath no further episodes no ongoing cough. This happened once. Apparently there was a fair amount of blood in his mouth.
Past History
Past History
ED Past Medical History: Hypothyroidism and Other (Downs)
ED Past Surgical History: None
Social History
Tobacco: Non-smoker
Alcohol: None
Drug: None
Personal: Single
Living: with family
Review of Systems
Review of Systems
All Other Systems: Not applicable
Constitutional: Denies fever
Respiratory: Denies trouble breathing
Cardiac: Denies chest pain or syncope
Phy Exam
Physical Exam
Physical Exam:
GENERAL: Alert and oriented in no apparent distress sequelae of Down syndrome
EYE: Orbits normal.
NECK: Supple. No swelling
ENT: Pharynx without erythema. No active bleeding. No intraoral blood. There is significant irritation to both nasal septum right greater than left but no active bleeding
CARDIAC: Regular rate and rhythm without any obvious murmurs.
LUNGS: Clear breath sounds,normal
ABDOMEN: Soft, without focal tenderness or distention
NEUROLOGICAL: Alert and oriented , grossly non-focal. Sequela of Down syndrome
SKIN: Warm and dry, no rash or lesion, no discoloration, skin intact.
MUSCULOSKELETAL: No edema,no deformity.Good color
PSYCH: Normal and appropriate interaction.
Course
Orders/Labs/Results
Orders:
Orders
09/11/24 16:11
Chest [CR Chest - 2 Views ] Urgent
Comment:
Reason For Exam: cough
Vital Signs
Initial and Last Documented VS:
Initial Vital Signs
Temp Pulse Resp BP Pulse Ox
98.8 F 88 18 134/87 95
09/11/24 16:08 09/11/24 16:08 09/11/24 16:08 09/11/24 16:08 09/11/24 16:08
Last Documented Vital Signs
Temp Pulse Resp BP Pulse Ox
98.8 F 73 16 126/79 98
09/11/24 16:08 09/11/24 17:57 09/11/24 17:57 09/11/24 17:57 09/11/24 17:57
MDM/Problems Addressed
Differential Diagnosis Includes:
Patient's exam is totally benign. He is in no distress. Airway is clear his lungs are clear he has no blood in his nares or oropharynx at this time. With the blood described in his mouth I think this is fairly unlikely to have been true lung
related hemoptysis. I am more suspicious of possibly a nosebleed while he was in the water. Discussed options with mom of further workup including CT angio of the chest which I feel would have a very low yield versus continued observation which I
think is reasonable. Mom is comfortable with outpatient observation. Will return with any issues
*Radiology
Radiology exam reviewed: radiology read reviewed (Negative)
*Pulse Oximetry
Patient hypoxic: no
*Critical Care Note
Total Time (30-74mins, 75-104mins- exclusive of procedures): Not Applicable
ED Attending Note
-
Portions of this chart may have been created with voice recognition software.� Occasional wrong word or��sound alike� substitutions may have occurred due to the inherent limitations of voice recognition software.
Discharge Plan
Departure
Patient Disposition: Home (Routine Discharge)
Date of Disposition: 09/11/24
Time of Disposition: 19:03
Patient with high blood pressure during this ER visit?: Yes
Discharge Problem:
Hemoptysis
Instructions: Coughing up blood, BLOOD PRESSURE
Prescriptions:
No Action
levothyroxine 125 mcg tablet
125 mcg PO DAILY
allopurinol 300 mg tablet
300 mg PO DAILY
amoxicillin-pot clavulanate 875-125 mg tablet
1 tab PO Q12H Qty: 8 0RF
Activity Restrictions/Additional Instructions:
Return with any recurrent episode, shortness of breath, fever cough chest pain or any other concerning symptoms
Follow-up closely with his primary physician
Interventions
Interventions:
*Risk Screen - Suicide Last Done: 09/11/24 16:08
*General Assessment Last Done: 09/11/24 16:08
*Neglect/Abuse Screening Last Done: 09/11/24 16:08
*ED- Fall Risk Assessment Last Done: 09/11/24 18:18
*ED COVID-19 Vaccine History Last Done: 09/11/24 18:18
ED- Pulmonary Assessment Last Done: 09/11/24 18:37
Discharge Date and Time
Print Language: OCCITAN
== END 2024-09-11 19:47 | disposition home or self-care (01) ==
LOC: EMR 16:03
PROVIDERS: EMERGENCY PHYSICIAN Emergency Medicine; FAMILY PHYSICIAN Family Medicine
DX: R04.2 Hemoptysis (principal); R09.A0 Foreign body sensation, unspecified; R03.0 Elevated blood-pressure reading, without diagnosis of hypertension; E03.9 Hypothyroidism, unspecified; Z88.1 Allergy status to other antibiotic agents
CPT/HCPCS: 99283; 71046